=== PATIENT | female | born 1965 | race Caucasian/White ===

== ENCOUNTER → 2016-12-21 | Outpatient (CLI) | payer OTHER ==
--- NOTE | ~2016-12-21 | MY11 ---
[facility] A Service of [facility] RADIOLOGY TEXT RESULTS PATIENT: FORTUNATO CHAUDHARY LOCATION: [facility] : 61 UNIT #: [id number] AGE: [address]: Wilma Lo MD SEX: F ORDER DR: [id number] [facility] [address] [place], [place] [address] [id number] MR#: [id number] #: [id number] NAME: FORTUNATO CHAUDHARY : 1965 SEX: F STUDY DATE/TIME: 12/21/2016 13:12 UNIT: [facility] ROOM: STUDY DESCRIPTION: MY Mammogram Screening Dig Aron Attending Physician: Wilma Lo M.D. Ordering Physician: Wilma Lo M.D. Primary Care Physician: Wilma Lo M.D. MEDICAL IMAGING REPORT This report is preliminary unless electronic signature is present EXAM Digital screening mammogram, 12/21/2016 HISTORY 51-year-old woman no risk elevation. Slightly larger left breast noted on history. Annual screening. COMPARISON Outside mammograms now available date 01/10/2010, 01/29/2011 and 05/29/2011 from [place], [place]. FINDINGS Digital imaging of each breast was completed utilizing screening protocol. Review includes FDA-approved CAD device. Breast parenchyma is predominantly fatty replaced. There is no breast mass identified. There is no interval occurring parenchymal density or interval occurring suspicious microcalcifications and no architectural deformity. IMPRESSION Negative mammogram. Annual screening recommended. Patients over the age of 40 are entered into a reminder system with target due date for the next mammogram. A result letter will also be sent to the patient. BIRADS: 1 Negative Dictated by... Mario Spangler M.D. THIS IS AN ELECTRONICALLY VERIFIED REPORT Mario Spangler M.D. at 12/25/2016 10:03 AM CHRISTY/hector [facility] A Service of [facility] RADIOLOGY TEXT RESULTS PATIENT: FORTUNATO CHAUDHARY LOCATION: [facility] : 61 UNIT #: [id number] AGE: [address]: Wilma Lo MD SEX: F ORDER DR: TD: 12/25/2016 09:24 JOB #: [id number] MEDICAL IMAGING REPORT Page 1 of 1 COPY
== END | disposition home or self-care (01) ==
LOC: CWCC 12:48
DX: Z12.31 Encounter for screening mammogram for malignant neoplasm of breast (principal)
CPT/HCPCS: G0202